=== PATIENT | male | born 1950 | race African-American/Black ===

== ENCOUNTER 2020-02-25 06:31 | Outpatient (CLI) | payer MEDICARE, BC, SELFPAY ==
--- NOTE | ~2020-02-25 | CT_ITS ---
EXAMINATION: CT abdomen pelvis w con DATE: 02/25/2020 07:08 INDICATION: Malignant neoplasm of the prostate. TECHNIQUE: Computed tomography (CT) of the abdomen and pelvis was performed with 100 mL Omnipaque-350 intravenous contrast. Automated exposure control and iterative reconstruction technique were employe d. The dose-length product was 218.86 mGy-cm. COMPARISON: None FINDINGS: Minimal atelectasis at the bilateral lung bases. Very small pericardial effusion along the inferior a spect of the heart. No pleural effusion. Tiny dense gallstones layering along the dependent aspect of the fundus of the normal-appearing gallbladder. No wall thickening or pericholecystic inflammatory c hange to suggest acute cholecystitis. Focal hepatic steatosis at the ligamentum teres. Spleen, pancre as and bilateral adrenal glands are normal. Regions of cortical scarring at both kidneys likely seque la of prior infection or infarction. Small atherosclerotic calcification along a vessel on the left r enal pelvis. 5 mm right renal cyst. There is mild scattered diverticulosis without adjacent inflammat ory change to suggest diverticulitis. No bowel obstruction. The appendix is not visualized. No perice kathi inflammatory change to suggest acute appendicitis. Mild wall thickening along the anterior bladde r with smooth mucosal surface likely due at least in part to incomplete distention although different ial would include sequela chronic outlet obstruction or cystitis either acute or chronic. No free int raperitoneal gas or fluid. No pathologically enlarged abdominal or pelvic lymphadenopathy. There is c alcified atherosclerosis of the aorta and many of the other arteries. Mild scattered degenerative ske letal changes. Sclerotic bone island with typical elongated configuration oriented along the trabecul ar axis and spiculated margins located at the base of the left greater trochanter. No corresponding u ptake at this location on prior bone scan. No other suspicious lytic or sclerotic bone lesions. IMPRESSION: 1. No evident metastatic disease. 2. Cholelithiasis. 3. Very small pericardial effusion. 4. Smooth wall thickening at the anterior bladder which could be due to incomplete distention, sequel a of chronic outlet obstruction or cystitis either acute or chronic. Correlate with urinalysis. Reviewed, dictated and finalized at location A. IMPRESSION: 1. No evident metastatic disease. 2. Cholelithiasis. 3. Very small pericardial effusion. 4. Smooth wall thickening at the anterior bladder which could be due to incompl ete distention, sequela of chronic outlet obstruction or cystitis either acute or chronic. Correlate with urinalysis.
--- NOTE | ~2020-02-25 | NM_ITS ---
EXAMINATION: NM bone scan whole body DATE: 02/25/2020 09:53 INDICATION: Malignant neoplasm of the prostate TECHNIQUE: 26.2 mCi Tc-99m HDP was administered intravenously. Delayed whole-body scintigrams were o btained. COMPARISON: CT abdomen and pelvis dated 02/25/2020 FINDINGS: Mild likely degenerative joint centered uptake at the bilateral acromioclavicular joints, a few cervi kathi facet joints and at several costovertebral articulations along the thoracic spine. Small foci of likely enthesopathic uptake at the patellae. No other suspicious foci of abnormal bone uptake to sugg est osteoblastic metastatic disease. IMPRESSION: 1. No evident osteoblastic metastatic disease. Reviewed, dictated and finalized at location A.
[2020-02-25 07:03] LABS: Estimated Glomerular Filt Rate > 60
== END 2020-02-25 06:32 | disposition home or self-care (01) ==
LOC: ANHIMG 06:41
PROVIDERS: PCP Internal Medicine; Visit Provider Urology
DX: C61 Malignant neoplasm of prostate (principal); K80.20 Calculus of gallbladder without cholecystitis without obstruction; I31.3 Pericardial effusion (noninflammatory); N32.9 Bladder disorder, unspecified
CPT/HCPCS: 36415; 74177; 78306; A9561; Q9967